=== PATIENT | female | born 1960 | race Caucasian/White ===

== ENCOUNTER 2017-09-25 11:47 | Inpatient (IN) | payer MEDICAID ==
[~2017-09-25] VITALS: Ht 152.4 cm; Wt 42.5 kg
[~2017-09-25 11:47] MED LIST: ALPR0.5T PO; BACL10TA; SERT-135 PO; SERTRALINE HCL 50 MG TAB PO SCH; TRAM50TA2
[2017-09-25] MEDS ORDERED: methylPREDNISolone SOD SUCC 125 MG/2 ML VL IV ONE (12:00)
[2017-09-25] MEDS ORDERED: ALBUTEROL SULF 2.5 MG/0.5ML(0.5%) NEB SOLN NEB ONE (12:00)
[2017-09-25] MEDS ORDERED: IPRATROPIUM BROM 0.5 MG/2.5ML INH SOL NEB ONE (12:00)
[2017-09-25 12:39] LABS: Basophils # (auto) 0 uL; Basophils % (auto) 0.2 % (0.0-2.0); Eosinophils # (auto) 0 uL; Hemoglobin 13.7 g/dL (12.2-16.2); Lymphocytes # (auto) 1.1 uL; Lymphocytes % (auto) 11.3 % (10.0-50.0); Mean Corpuscular Hemoglobin 31.8 pg (28.0-32.0); Mean Corpuscular Hgb Conc. 32.5 g/dL (32.0-36.0); Mean Corpuscular Volume 97.8 fL (80.0-100.0); Monocytes % (auto) 10.3 % (0.0-12.0); Neutrophils # (auto) 7.6 uL; Neutrophils % (auto) 78.2 % (37.0-80.0); Nucleated Red Blood Cells % 0.1 %; Platelet Count (auto) 259 10^3/uL (140-450); Red Blood Cells 4.29 10^6/uL (4.0-5.20); Red Cell Distribution Width 15.6 % (11.8-14.3); White Blood Cell 9.7 10^3/uL (4.4-10.8)
[2017-09-25 13:10] LABS: Alanine Aminotransferase 30 U/L (13-56); Albumin 3.1 g/dL (3.4-5.0); Alkaline Phosphatase 126 U/L (45-117); Anion Gap 3 (5-15); Aspartate Aminotransferase 39 U/L (15-37); BUN/Creatinine Ratio 28.6; Bilirubin, Total 0.3 mg/dL (0.2-1.0); Blood Urea Nitrogen 20 mg/dL (7-18); Calcium 8.3 mg/dL (8.5-10.1); Carbon Dioxide 30 mmol/L (21-32); Chloride 90 mmol/L (98-107); GFR African American 110 mL/min; GFR Non-African American 91 mL/min; Glucose 129 mg/dL (74-106); Potassium 5.4 mmol/L (3.5-5.1); Sodium 123 mmol/L (136-145); Total Protein 7.8 g/dL (6.4-8.2)
[2017-09-25] MEDS ORDERED: cefTRIAXone 1GM/10ml IVPUSH 10 ML IV ONE (13:45)
[2017-09-25] MEDS ORDERED: AZITHROMYCIN 500MG/ 250ML 250 ML IV ONE (13:45)
[2017-09-25] MEDS ORDERED: ALPRAZolam 0.5 MG TAB PO SCH (14:30)
[2017-09-25] MEDS ORDERED: DEXTROSE (50%) 50ML SYRG IV PRN (14:30)
[2017-09-25] MEDS ORDERED: MORPHINE SULFATE 4 MG/ML SYR/VIAL IV PRN ×2 (14:30)
[2017-09-25] MEDS ORDERED: LORazepam 0.5 MG TAB PO PRN (14:30)
[2017-09-25] MEDS ORDERED: traMADol HCL 50 MG TAB PO PRN (14:30)
[2017-09-25] MEDS ORDERED: ALBUTEROL SULF 2.5 MG/0.5ML(0.5%) NEB SOLN NEB PRN (14:30)
[2017-09-25] MEDS ORDERED: HYDROcodone-ACET 5/325MG TAB PO PRN (14:30)
[2017-09-25] MEDS ORDERED: NITROGLYCERIN 0.4 MG SL TAB SL PRN (14:30)
[2017-09-25] MEDS ORDERED: LACTULOSE 20Gm/30ML SOLN PO PRN (14:30)
[2017-09-25] MEDS ORDERED: TEMAZEPAM 15 MG CAP PO PRN (14:30)
[2017-09-25] MEDS ORDERED: ENOXAPARIN SOD 40 MG/0.4 ML SYRINGE SC ONE (14:45)
[2017-09-25] MEDS ORDERED: FUROSEMIDE 40 MG/4 ML VIAL IV ONE (14:45)
[2017-09-25] MEDS ORDERED: ASPirin 81 mg TAB PO ONE (14:45)
[2017-09-25] MEDS ORDERED: CARVEDILOL 3.125 MG TAB PO ONE (14:45)
[2017-09-25] MEDS ORDERED: ENALAPRIL MALEATE 2.5 MG TAB PO ONE (14:45)
[2017-09-25] MEDS ORDERED: SERTRALINE HCL 50 MG TAB PO ONE (14:45)
[2017-09-25 16:02] VITALS: BP 116/71
[2017-09-25] MEDS: ACCU-CHEK COMFORT CURVE STRIP VI SCH (17:57)
[2017-09-25] MEDS ORDERED: SERT25TA84 PO (18:11)
[2017-09-25] MEDS: ALBUTEROL SULF 2.5 MG/0.5ML(0.5%) NEB SOLN NEB SCH (19:00)
[2017-09-25] MEDS: IPRATROPIUM BROM 0.5 MG/2.5ML INH SOL NEB SCH (19:00)
[2017-09-25] MEDS: CARVEDILOL 3.125 MG TAB PO SCH ×2 (20:05→20:09)
[2017-09-25] MEDS: SERTRALINE HCL 50 MG TAB PO SCH (20:08)
[2017-09-25] MEDS: SODIUM CHLOR 0.9% PF (SALINE LOCK) 10ML VIAL IV SCH (20:08)
[2017-09-25 22:00] VITALS: BP 98/66
[2017-09-25] MEDS ORDERED: SERTRALINE HCL 50 MG TAB PO SCH (22:00)
[2017-09-26] MEDS: IPRATROPIUM BROM 0.5 MG/2.5ML INH SOL NEB SCH ×4 (00:37→18:00)
[2017-09-26] MEDS: ALBUTEROL SULF 2.5 MG/0.5ML(0.5%) NEB SOLN NEB SCH ×4 (00:37→18:00)
[2017-09-26] MEDS ORDERED: NALOXONE HCL 0.4 MG/ML VIAL ONE (04:46)
[2017-09-26 05:00] VITALS: BP 100/56
[2017-09-26] MEDS: SODIUM CHLOR 0.9% PF (SALINE LOCK) 10ML VIAL IV SCH ×3 (05:58→21:48)
[2017-09-26] MEDS ORDERED: NALOXONE HCL 0.4 MG/ML VIAL IM ONE (06:00)
[2017-09-26] MEDS: ACCU-CHEK COMFORT CURVE STRIP VI SCH ×4 (06:25→18:05)
[2017-09-26 09:00] VITALS: BP 83/60
[2017-09-26] MEDS: cefTRIAXone 1GM/10ml IVPUSH 10 ML IV SCH (09:20)
[2017-09-26] MEDS: ENALAPRIL MALEATE 2.5 MG TAB PO SCH (10:00)
[2017-09-26] MEDS: ASPirin 81 mg TAB PO SCH (10:00)
[2017-09-26] MEDS: ENOXAPARIN SOD 40 MG/0.4 ML SYRINGE SC SCH (10:00)
[2017-09-26] MEDS: SERTRALINE HCL 50 MG TAB PO SCH ×2 (10:00→21:50)
[2017-09-26] MEDS ORDERED: SERTRALINE HCL 50 MG TAB PO SCH (10:00)
[2017-09-26] MEDS ORDERED: FUROSEMIDE 40 MG/4 ML VIAL IV SCH (10:00)
[2017-09-26 10:34] LABS: Basophils # (auto) 0 uL; Eosinophils # (auto) 0 uL; Hematocrit 41.8 % (36.0-46.0); Hemoglobin 13.6 g/dL (12.2-16.2); Lymphocytes # (auto) 1.2 uL; Lymphocytes % (auto) 11.6 % (10.0-50.0); Mean Corpuscular Hemoglobin 32.2 pg (28.0-32.0); Mean Corpuscular Hgb Conc. 32.5 g/dL (32.0-36.0); Mean Corpuscular Volume 98.8 fL (80.0-100.0); Monocytes # (auto) 1.1 uL; Monocytes % (auto) 11.2 % (0.0-12.0); Neutrophils # (auto) 7.7 uL; Neutrophils % (auto) 77.2 % (37.0-80.0); Nucleated Red Blood Cells % 0.5 %; Platelet Count (auto) 286 10^3/uL (140-450); Red Blood Cells 4.23 10^6/uL (4.0-5.20); Red Cell Distribution Width 15.3 % (11.8-14.3)
[2017-09-26 10:55] LABS: Albumin 2.7 g/dL (3.4-5.0); BUN/Creatinine Ratio 44.3; Bilirubin, Total 0.2 mg/dL (0.2-1.0); Calcium 8.1 mg/dL (8.5-10.1); Total Protein 7.2 g/dL (6.4-8.2)
[2017-09-26 11:12] LABS: Potassium 6.1 mmol/L (3.5-5.1)
[2017-09-26] MEDS ORDERED: SODIUM POLYSTYRENE SULF 15GM/60ML SUSP PO ONE (11:30)
[2017-09-26] MEDS: SODIUM CHLORIDE 0.9% 1,000 ML IV SCH ×2 (11:30→21:36)
[2017-09-26] MEDS: PROMETHAZINE HCL 25 MG/ML 1ML IV PRN (12:22)
[2017-09-26] MEDS: AZITHROMYCIN 500MG/ 250ML 250 ML IV SCH (12:26)
[2017-09-26 12:59] LABS: BUN/Creatinine Ratio 48.3; Calcium 7.7 mg/dL (8.5-10.1)
[2017-09-26 13:00] VITALS: BP 77/54
[2017-09-26 13:19] LABS: Potassium 6.1 mmol/L (3.5-5.1)
[2017-09-26] MEDS: SILDENAFIL CITRATE 20 MG TAB PO SCH ×2 (14:00→20:00)
[2017-09-26] MEDS: methylPREDNISolone SOD SUCC 40 MG/ML VL IV SCH ×2 (14:44→21:49)
[2017-09-26 18:13] VITALS: BP 91/65
[2017-09-26] MEDS: CARVEDILOL 3.125 MG TAB PO SCH (21:49)
[2017-09-26 22:00] VITALS: BP 90/58
[2017-09-27 00:50] LABS: Urine Bacteria NONE SEEN /hpf (None Seen); Urine Blood Negative /uL (Negative); Urine Hyaline Cast FEW /lpf (0 - 2); Urine WBC <1 /hpf (0 - 5)
[2017-09-27 05:00] VITALS: BP 96/68
[2017-09-27] MEDS ORDERED: SODIUM CHL 3% 500 ML IV ONE (06:15)
[2017-09-27] MEDS: ACCU-CHEK COMFORT CURVE STRIP VI SCH ×5 (06:25→23:37)
[2017-09-27] MEDS: SODIUM CHLOR 0.9% PF (SALINE LOCK) 10ML VIAL IV SCH ×3 (06:25→22:04)
[2017-09-27] MEDS: methylPREDNISolone SOD SUCC 40 MG/ML VL IV SCH ×3 (06:25→22:04)
[2017-09-27] MEDS: IPRATROPIUM BROM 0.5 MG/2.5ML INH SOL NEB SCH ×3 (06:29→18:41)
[2017-09-27] MEDS: ALBUTEROL SULF 2.5 MG/0.5ML(0.5%) NEB SOLN NEB SCH ×3 (06:29→18:41)
[2017-09-27 07:19] LABS: Basophils # (auto) 0 uL; Basophils % (auto) 0.1 % (0.0-2.0); Eosinophils # (auto) 0 uL; Hematocrit 40.2 % (36.0-46.0); Lymphocytes # (auto) 0.7 uL; Lymphocytes % (auto) 6.6 % (10.0-50.0); Mean Corpuscular Hemoglobin 31.9 pg (28.0-32.0); Mean Corpuscular Hgb Conc. 32.2 g/dL (32.0-36.0); Mean Corpuscular Volume 98.9 fL (80.0-100.0); Monocytes # (auto) 0.7 uL; Monocytes % (auto) 6.4 % (0.0-12.0); Neutrophils # (auto) 9.7 uL; Neutrophils % (auto) 86.9 % (37.0-80.0); Nucleated Red Blood Cells % 0.3 %; Platelet Count (auto) 284 10^3/uL (140-450); Red Blood Cells 4.07 10^6/uL (4.0-5.20); Red Cell Distribution Width 15.3 % (11.8-14.3); White Blood Cell 11.1 10^3/uL (4.4-10.8)
[2017-09-27 07:28] LABS: Calcium 8.3 mg/dL (8.5-10.1)
[2017-09-27 07:31] LABS: BUN/Creatinine Ratio 44.7
[2017-09-27 08:00] VITALS: BP 97/58
[2017-09-27 08:34] VITALS: BP 97/58
[2017-09-27] MEDS ORDERED: SODIUM POLYSTYRENE SULF 15GM/60ML SUSP PO ONE (09:00)
[2017-09-27] MEDS: cefTRIAXone 1GM/10ml IVPUSH 10 ML IV SCH (09:43)
[2017-09-27] MEDS: SILDENAFIL CITRATE 20 MG TAB PO SCH ×3 (09:44→20:01)
[2017-09-27] MEDS: SERTRALINE HCL 50 MG TAB PO SCH ×2 (09:44→22:05)
[2017-09-27] MEDS: ASPirin 81 mg TAB PO SCH (09:44)
[2017-09-27] MEDS: ENALAPRIL MALEATE 2.5 MG TAB PO SCH (09:47)
[2017-09-27] MEDS: ENOXAPARIN SOD 40 MG/0.4 ML SYRINGE SC SCH (09:47)
[2017-09-27] MEDS: CARVEDILOL 3.125 MG TAB PO SCH ×2 (09:47→22:00)
[2017-09-27] MEDS: AZITHROMYCIN 500MG/ 250ML 250 ML IV SCH (09:48)
[2017-09-27] MEDS: PROMETHAZINE HCL 25 MG/ML 1ML IV PRN (11:14)
[2017-09-27 12:31] LABS: BUN/Creatinine Ratio 36.4; Calcium 8.2 mg/dL (8.5-10.1)
[2017-09-27 12:34] LABS: Urine Bacteria FEW /hpf (None Seen); Urine Blood Negative /uL (Negative); Urine Specific Gravity 1.016 (1.001-1.035); Urine WBC 1 /hpf (0 - 5)
[2017-09-27 13:00] VITALS: BP 116/18
[2017-09-27 16:38] LABS: BUN/Creatinine Ratio 29.2; Potassium 4.5 mmol/L (3.5-5.1)
[2017-09-27 17:00] VITALS: BP 84/45
[2017-09-27] MEDS: BOOST PLUS 8 ounce PO SCH (18:01)
[2017-09-27 22:00] VITALS: BP 92/58
[2017-09-28] VITALS (7 sets, daily range): BP systolic 84–109; BP diastolic 41–74
[2017-09-28] MEDS: IPRATROPIUM BROM 0.5 MG/2.5ML INH SOL NEB SCH ×4 (00:25→18:58)
[2017-09-28] MEDS: ALBUTEROL SULF 2.5 MG/0.5ML(0.5%) NEB SOLN NEB SCH ×4 (00:25→18:13)
[2017-09-28] MEDS: SODIUM CHLOR 0.9% PF (SALINE LOCK) 10ML VIAL IV SCH ×3 (06:02→21:51)
[2017-09-28] MEDS: ACCU-CHEK COMFORT CURVE STRIP VI SCH ×3 (06:02→18:13)
[2017-09-28 06:55] LABS: Basophils # (auto) 0 uL; Basophils % (auto) 0.1 % (0.0-2.0); Eosinophils # (auto) 0 uL; Hematocrit 37.1 % (36.0-46.0); Hemoglobin 12.1 g/dL (12.2-16.2); Lymphocytes # (auto) 0.5 uL; Mean Corpuscular Hemoglobin 31.9 pg (28.0-32.0); Mean Corpuscular Hgb Conc. 32.6 g/dL (32.0-36.0); Mean Corpuscular Volume 97.9 fL (80.0-100.0); Monocytes # (auto) 0.7 uL; Monocytes % (auto) 7.9 % (0.0-12.0); Neutrophils # (auto) 8.1 uL; Nucleated Red Blood Cells % 0.1 %; Platelet Count (auto) 280 10^3/uL (140-450); Red Blood Cells 3.79 10^6/uL (4.0-5.20); White Blood Cell 9.3 10^3/uL (4.4-10.8)
[2017-09-28 06:57] LABS: BUN/Creatinine Ratio 31.6; Calcium 7.5 mg/dL (8.5-10.1); Potassium 3.2 mmol/L (3.5-5.1)
[2017-09-28] MEDS: cefTRIAXone 1GM/10ml IVPUSH 10 ML IV SCH (09:23)
[2017-09-28] MEDS: ENOXAPARIN SOD 40 MG/0.4 ML SYRINGE SC SCH (09:24)
[2017-09-28] MEDS: SERTRALINE HCL 50 MG TAB PO SCH (09:25)
[2017-09-28] MEDS: SILDENAFIL CITRATE 20 MG TAB PO SCH ×3 (09:25→21:50)
[2017-09-28] MEDS: AZITHROMYCIN 500MG/ 250ML 250 ML IV SCH (09:25)
[2017-09-28] MEDS: ASPirin 81 mg TAB PO SCH (09:25)
[2017-09-28] MEDS: methylPREDNISolone SOD SUCC 40 MG/ML VL IV SCH ×2 (09:25→21:50)
[2017-09-28] MEDS: CARVEDILOL 3.125 MG TAB PO SCH ×2 (09:26→21:58)
[2017-09-28] MEDS: BOOST PLUS 8 ounce PO SCH ×2 (09:27→18:13)
[2017-09-28] MEDS ORDERED: POTASSIUM CHL 20 Meq TABLET PO ONE (12:45)
[2017-09-29] MEDS: IPRATROPIUM BROM 0.5 MG/2.5ML INH SOL NEB SCH ×4 (00:38→18:26)
[2017-09-29] MEDS: ALBUTEROL SULF 2.5 MG/0.5ML(0.5%) NEB SOLN NEB SCH ×4 (00:38→18:26)
[2017-09-29] MEDS: ACCU-CHEK COMFORT CURVE STRIP VI SCH ×5 (00:38→23:58)
[2017-09-29 05:30] VITALS: BP 94/63
[2017-09-29 06:02] LABS: Basophils # (auto) 0 uL; Basophils % (auto) 0.1 % (0.0-2.0); Eosinophils # (auto) 0 uL; Hematocrit 39.2 % (36.0-46.0); Lymphocytes # (auto) 0.8 uL; Lymphocytes % (auto) 8.8 % (10.0-50.0); Mean Corpuscular Hemoglobin 32.5 pg (28.0-32.0); Mean Corpuscular Hgb Conc. 33.1 g/dL (32.0-36.0); Mean Corpuscular Volume 98.2 fL (80.0-100.0); Monocytes # (auto) 0.8 uL; Monocytes % (auto) 8.7 % (0.0-12.0); Neutrophils # (auto) 7.7 uL; Neutrophils % (auto) 82.4 % (37.0-80.0); Nucleated Red Blood Cells % 0.1 %; Platelet Count (auto) 314 10^3/uL (140-450); Red Cell Distribution Width 15.4 % (11.8-14.3); White Blood Cell 9.4 10^3/uL (4.4-10.8)
[2017-09-29 06:13] LABS: BUN/Creatinine Ratio 40.4; Calcium 8.1 mg/dL (8.5-10.1); Magnesium 1.7 mg/dL (1.6-2.6); Potassium 4.6 mmol/L (3.5-5.1)
[2017-09-29] MEDS: SODIUM CHLOR 0.9% PF (SALINE LOCK) 10ML VIAL IV SCH ×3 (06:14→21:38)
[2017-09-29 07:46] VITALS: BP 102/58
[2017-09-29] MEDS: BOOST PLUS 8 ounce PO SCH (08:00)
[2017-09-29] MEDS ORDERED: SERTRALINE HCL 50 MG TAB PO SCH (10:00)
[2017-09-29] MEDS: ASPirin 81 mg TAB PO SCH (11:52)
[2017-09-29] MEDS: CARVEDILOL 3.125 MG TAB PO SCH ×2 (11:52→21:38)
[2017-09-29] MEDS: ENOXAPARIN SOD 40 MG/0.4 ML SYRINGE SC SCH (11:53)
[2017-09-29] MEDS: methylPREDNISolone SOD SUCC 40 MG/ML VL IV SCH ×2 (11:54→21:38)
[2017-09-29] MEDS: cefTRIAXone 1GM/10ml IVPUSH 10 ML IV SCH (11:54)
[2017-09-29] MEDS: SILDENAFIL CITRATE 20 MG TAB PO SCH ×3 (11:54→20:19)
[2017-09-29 12:03] VITALS: BP 110/60
[2017-09-29] MEDS: AZITHROMYCIN 250 MG TAB PO SCH (13:30)
[2017-09-29] MEDS: PROMETHAZINE HCL 25 MG/ML 1ML IV PRN (16:36)
[2017-09-29 17:27] VITALS: BP 92/64
[2017-09-29] MEDS: Nutren Pulmonary 250ml Bottle PO SCH (19:51)
[2017-09-29 22:08] VITALS: BP 96/63
[2017-09-30] MEDS: IPRATROPIUM BROM 0.5 MG/2.5ML INH SOL NEB SCH ×5 (00:24→23:46)
[2017-09-30] MEDS: ALBUTEROL SULF 2.5 MG/0.5ML(0.5%) NEB SOLN NEB SCH ×5 (00:24→23:46)
[2017-09-30 05:25] VITALS: BP 112/72
[2017-09-30] MEDS: ACCU-CHEK COMFORT CURVE STRIP VI SCH ×4 (06:01→23:27)
[2017-09-30] MEDS: SODIUM CHLOR 0.9% PF (SALINE LOCK) 10ML VIAL IV SCH ×3 (06:01→22:01)
[2017-09-30 07:09] LABS: Basophils # (auto) 0 uL; Basophils % (auto) 0.1 % (0.0-2.0); Eosinophils # (auto) 0 uL; Hematocrit 40.2 % (36.0-46.0); Lymphocytes # (auto) 0.7 uL; Lymphocytes % (auto) 9.4 % (10.0-50.0); Mean Corpuscular Hemoglobin 31.8 pg (28.0-32.0); Mean Corpuscular Hgb Conc. 32.4 g/dL (32.0-36.0); Mean Corpuscular Volume 98.2 fL (80.0-100.0); Monocytes # (auto) 0.5 uL; Monocytes % (auto) 7.4 % (0.0-12.0); Neutrophils # (auto) 5.9 uL; Neutrophils % (auto) 83.1 % (37.0-80.0); Nucleated Red Blood Cells % 0.1 %; Platelet Count (auto) 328 10^3/uL (140-450); Red Cell Distribution Width 15.5 % (11.8-14.3); White Blood Cell 7.1 10^3/uL (4.4-10.8)
[2017-09-30 07:17] LABS: BUN/Creatinine Ratio 48.8; Calcium 8.3 mg/dL (8.5-10.1); Potassium 4.7 mmol/L (3.5-5.1)
[2017-09-30 08:21] VITALS: BP 105/66
[2017-09-30] MEDS: Nutren Pulmonary 250ml Bottle PO SCH ×3 (08:22→17:10)
[2017-09-30] MEDS: SILDENAFIL CITRATE 20 MG TAB PO SCH ×3 (08:22→20:00)
[2017-09-30] MEDS: cefTRIAXone 1GM/10ml IVPUSH 10 ML IV SCH (08:22)
[2017-09-30] MEDS: ASPirin 81 mg TAB PO SCH (10:11)
[2017-09-30] MEDS: methylPREDNISolone SOD SUCC 40 MG/ML VL IV SCH ×2 (10:11→22:01)
[2017-09-30] MEDS: ENOXAPARIN SOD 40 MG/0.4 ML SYRINGE SC SCH (10:12)
[2017-09-30] MEDS: CARVEDILOL 3.125 MG TAB PO SCH ×2 (10:12→22:00)
[2017-09-30] MEDS: AZITHROMYCIN 250 MG TAB PO SCH (10:12)
[2017-09-30] MEDS: CEPHALEXIN 250 MG CAP PO SCH ×3 (12:13→23:27)
[2017-09-30 13:24] VITALS: BP 105/71
[2017-09-30 16:47] VITALS: BP 101/64
[2017-09-30 21:40] VITALS: BP 103/60
[2017-09-30] MEDS: ACETAMINOPHEN 500 MG TAB PO PRN (22:15)
[2017-10-01 05:38] VITALS: BP 122/76
[2017-10-01] MEDS: SODIUM CHLOR 0.9% PF (SALINE LOCK) 10ML VIAL IV SCH ×3 (06:35→22:00)
[2017-10-01] MEDS: ACCU-CHEK COMFORT CURVE STRIP VI SCH ×3 (06:36→17:30)
[2017-10-01] MEDS: CEPHALEXIN 250 MG CAP PO SCH ×3 (06:36→17:30)
[2017-10-01 06:44] LABS: Basophils # (auto) 0 uL; Eosinophils # (auto) 0 uL; Hematocrit 41.5 % (36.0-46.0); Hemoglobin 13.7 g/dL (12.2-16.2); Lymphocytes # (auto) 0.7 uL; Lymphocytes % (auto) 9.8 % (10.0-50.0); Mean Corpuscular Hemoglobin 31.9 pg (28.0-32.0); Mean Corpuscular Volume 96.8 fL (80.0-100.0); Monocytes # (auto) 0.4 uL; Monocytes % (auto) 5.1 % (0.0-12.0); Neutrophils # (auto) 6.5 uL; Neutrophils % (auto) 85.1 % (37.0-80.0); Nucleated Red Blood Cells % 0.1 %; Platelet Count (auto) 367 10^3/uL (140-450); Red Blood Cells 4.29 10^6/uL (4.0-5.20); Red Cell Distribution Width 15.2 % (11.8-14.3); White Blood Cell 7.6 10^3/uL (4.4-10.8)
[2017-10-01 06:47] LABS: Calcium 8.4 mg/dL (8.5-10.1); Potassium 4.9 mmol/L (3.5-5.1)
[2017-10-01] MEDS: ALBUTEROL SULF 2.5 MG/0.5ML(0.5%) NEB SOLN NEB SCH ×4 (06:58→18:31)
[2017-10-01] MEDS: IPRATROPIUM BROM 0.5 MG/2.5ML INH SOL NEB SCH ×4 (06:58→18:31)
[2017-10-01 08:38] VITALS: BP 102/70
[2017-10-01] MEDS: Nutren Pulmonary 250ml Bottle PO SCH ×3 (09:52→17:30)
[2017-10-01] MEDS: SILDENAFIL CITRATE 20 MG TAB PO SCH ×3 (09:52→20:21)
[2017-10-01] MEDS: ASPirin 81 mg TAB PO SCH (09:53)
[2017-10-01] MEDS: ACETAMINOPHEN 500 MG TAB PO PRN (09:53)
[2017-10-01] MEDS: methylPREDNISolone SOD SUCC 40 MG/ML VL IV SCH (09:53)
[2017-10-01] MEDS: CARVEDILOL 3.125 MG TAB PO SCH ×2 (09:54→22:00)
[2017-10-01] MEDS: AZITHROMYCIN 250 MG TAB PO SCH (09:54)
[2017-10-01] MEDS: ENOXAPARIN SOD 40 MG/0.4 ML SYRINGE SC SCH (09:55)
[2017-10-01 13:00] VITALS: BP 105/65
[2017-10-01] MEDS: PROMETHAZINE HCL 25 MG/ML 1ML IV PRN (14:41)
[2017-10-01 16:42] VITALS: BP 111/69
[2017-10-01 17:37] VITALS: BP 111/69
[2017-10-01] MEDS: BUDESONIDE (INHALATION) 0.5 MG/2 ML NEB NEB SCH (18:31)
[2017-10-01] MEDS ORDERED: ALPRAZolam 0.5 MG TAB PO PRN (21:00)
[2017-10-01 21:57] VITALS: BP 111/74
[2017-10-02] MEDS: ACCU-CHEK COMFORT CURVE STRIP VI SCH ×4 (00:01→18:00)
[2017-10-02] MEDS: CARVEDILOL 3.125 MG TAB PO SCH ×2 (00:04→09:09)
[2017-10-02] MEDS: CEPHALEXIN 250 MG CAP PO SCH ×4 (00:04→18:00)
[2017-10-02 05:00] VITALS: BP 124/79
[2017-10-02] MEDS: IPRATROPIUM BROM 0.5 MG/2.5ML INH SOL NEB SCH ×3 (06:20→14:27)
[2017-10-02] MEDS: ALBUTEROL SULF 2.5 MG/0.5ML(0.5%) NEB SOLN NEB SCH ×3 (06:20→14:27)
[2017-10-02] MEDS: SODIUM CHLOR 0.9% PF (SALINE LOCK) 10ML VIAL IV SCH ×2 (06:26→14:00)
[2017-10-02 08:00] VITALS: BP 113/87
[2017-10-02] MEDS: Nutren Pulmonary 250ml Bottle PO SCH ×3 (08:00→18:00)
[2017-10-02 08:31] VITALS: BP 113/87
[2017-10-02 08:57] LABS: Calcium 8.8 mg/dL (8.5-10.1)
[2017-10-02 08:58] LABS: BUN/Creatinine Ratio 71.9
[2017-10-02] MEDS: ENOXAPARIN SOD 40 MG/0.4 ML SYRINGE SC SCH (09:08)
[2017-10-02] MEDS: AZITHROMYCIN 250 MG TAB PO SCH (09:08)
[2017-10-02] MEDS: ASPirin 81 mg TAB PO SCH (09:09)
[2017-10-02] MEDS: SILDENAFIL CITRATE 20 MG TAB PO SCH ×2 (09:09→15:18)
[2017-10-02] MEDS: BUDESONIDE (INHALATION) 0.5 MG/2 ML NEB NEB SCH (09:41)
[2017-10-02] MEDS ORDERED: predniSONE 20 MG TAB PO SCH (10:00)
[2017-10-02 12:17] VITALS: BP 105/71
[2017-10-02 16:50] VITALS: BP 122/74
== END 2017-10-02 18:00 | disposition home or self-care (01) | DRG 139 ==
LOC: EDBD 11:47 → ER 11:47 → TELE 11:48 → TELE-CENTR 17:39 → TELE-EAST 09-26 05:40
PROVIDERS: ADMIT Internal Medicine; ATTEND Internal Medicine Pulmonary Disease
DX: J18.9 Pneumonia, unspecified organism (principal); J96.21 Acute and chronic respiratory failure with hypoxia; I50.33 Acute on chronic diastolic (congestive) heart failure; E44.0 Moderate protein-calorie malnutrition; E22.2 Syndrome of inappropriate secretion of antidiuretic hormone; I27.20 Pulmonary hypertension, unspecified; E44.1 Mild protein-calorie malnutrition; J44.0 Chronic obstructive pulmonary disease with (acute) lower respiratory infection; J44.1 Chronic obstructive pulmonary disease with (acute) exacerbation; I11.0 Hypertensive heart disease with heart failure; J96.22 Acute and chronic respiratory failure with hypercapnia; F32.9 Major depressive disorder, single episode, unspecified; F43.10 Post-traumatic stress disorder, unspecified; K59.00 Constipation, unspecified; G47.00 Insomnia, unspecified; F41.9 Anxiety disorder, unspecified; E87.5 Hyperkalemia; Z68.1 Body mass index [BMI] 19.9 or less, adult; Z85.3 Personal history of malignant neoplasm of breast; Z87.891 Personal history of nicotine dependence; Z90.12 Acquired absence of left breast and nipple; Z79.899 Other long term (current) drug therapy; Z71.3 Dietary counseling and surveillance
CPT/HCPCS: 36415; 36600; 71045; 71250; 80048; 80053; 81001; 82533; 82550; 82805; 82962; 83036; 83735; 83880; 83930; 83935; 84133; 84300; 84443; 84484; 85025; 87040; 87070; 87205; 87804; 93005; 93306; 94640; 96372; 96374; 96375; 97163; 99291